=== PATIENT | female | born 1980 | race Caucasian/White ===

== ENCOUNTER 2021-08-28 02:43 | Emergency (ER) | payer MEDICAID ==
[~2021-08-28] VITALS: Ht 167.6 cm; Wt 45.4 kg
[2021-08-28 04:17] VITALS: BP 142/72
== END 2021-08-28 04:24 | disposition left against medical advice (07) ==
LOC: EDBD 02:43 → ER 02:43
DX: F11.23 Opioid dependence with withdrawal (principal); Z53.21 Procedure and treatment not carried out due to patient leaving prior to being seen by health care provider

== ENCOUNTER 2021-08-28 10:28 | Emergency (ER) | payer MEDICAID ==
[~2021-08-28] VITALS: Ht 172.7 cm; Wt 52.2 kg
[2021-08-28] MEDS ORDERED: ONDANSETRON HCL 4 MG/2 ML VIAL IV ONE (11:00)
[2021-08-28] MEDS ORDERED: SODIUM CHLORIDE 0.9% 1,000 ML IV ONE ×2 (11:00→14:30)
[2021-08-28] MEDS ORDERED: LORazepam 2MG/ML-1ML VIAL IV ONE ×2 (11:00→17:30)
[2021-08-28 11:11] LABS: Urine WBC None Seen /hpf (0 - 5)
[2021-08-28 11:31] LABS: Urine Bacteria NONE SEEN /hpf (None Seen); Urine Blood Negative /uL (Negative); Urine Specific Gravity 1.002 (1.001-1.035)
[2021-08-28 11:41] LABS: Amphetamine Screen, Urine POSITIVE (NEGATIVE); Barbiturate Scree,Urine NEGATIVE (NEGATIVE); Benzodiazephine Screen, Urine NEGATIVE (NEGATIVE); Cannabinoid Screen, Urine POSITIVE (NEGATIVE); Cocaine Screen, Urine NEGATIVE (NEGATIVE); Opiate Scree,Urine NEGATIVE (NEGATIVE); Phencyclidine Screen, Urine NEGATIVE (NEGATIVE)
[2021-08-28 12:36] LABS: Basophils # (auto) 0 10 ^3/uL (0-0.2); Basophils % (auto) 0.2 % (0.0-2.0); Eosinophils # (auto) 0 10 ^3/uL (0-0.8); Eosinophils % (auto) 0.1 % (0.0-7.0); Hematocrit 51.5 % (36.0-46.0); Hemoglobin 17.3 g/dL (12.2-16.2); Lymphocytes # (auto) 1.6 10 ^3/uL (0.4-5.4); Lymphocytes % (auto) 17.4 % (10.0-50.0); Mean Corpuscular Hgb Conc. 33.5 g/dL (32.0-36.0); Mean Corpuscular Volume 92.6 fL (80.0-100.0); Monocytes # (auto) 0.5 10 ^3/uL (0-1.3); Monocytes % (auto) 5.8 % (0.0-12.0); Neutrophils # (auto) 7.1 10 ^3/uL (1.6-8.6); Neutrophils % (auto) 76.5 % (37.0-80.0); Red Blood Cells 5.57 10^6/uL (4.0-5.20); Red Cell Distribution Width 14.2 % (11.8-14.3); White Blood Cell 9.3 10^3/uL (4.4-10.8)
[2021-08-28 12:58] LABS: Albumin 3.9 g/dL (3.4-5.0); Calcium 8.9 mg/dL (8.5-10.1); Potassium 3.3 mmol/L (3.5-5.1)
[2021-08-28 13:01] LABS: BUN/Creatinine Ratio 14.7; Bilirubin, Total 1.2 mg/dL (0.2-1.0)
[2021-08-28] MEDS ORDERED: diphenhdrAMINE HCL 50 MG/1 ML VL IV ONE (22:15)
[2021-08-29] MEDS: LORazepam 2MG/ML-1ML VIAL IV PRN ×4 (02:52→11:25)
[2021-08-29 08:15] LABS: Alcohol, Urine < 3.0 mg/dL (0-10); Amphetamine Screen, Urine POSITIVE (NEGATIVE); Barbiturate Scree,Urine NEGATIVE (NEGATIVE); Benzodiazephine Screen, Urine NEGATIVE (NEGATIVE); Cannabinoid Screen, Urine POSITIVE (NEGATIVE); Cocaine Screen, Urine NEGATIVE (NEGATIVE); Phencyclidine Screen, Urine NEGATIVE (NEGATIVE)
[2021-08-29 08:23] LABS: Opiate Scree,Urine POSITIVE (NEGATIVE)
[2021-08-29] MEDS ORDERED: SODIUM CHLORIDE 0.9% 1,000 ML IVB ONE (08:45)
[2021-08-29] MEDS: FOLIC ACID 1 MG, MULTIPLE VITAMIN 10 ML, MAGNESIUM SULF SDV 50% 8 MEQ, THIAMINE INJ 100... INJ SCH ×5 (09:38)
[2021-08-29] MEDS ORDERED: LORazepam 2MG/ML-1ML VIAL IV ONE (11:30)
[2021-08-29 20:00] VITALS: BP 119/92
[2021-08-30] MEDS ORDERED: LOPERAMIDE HCL 2 MG CAP/TAB PO STA (06:56)
[2021-08-30] MEDS ORDERED: LOPERAMIDE HCL 2 MG CAP/TAB PO PRN (07:00)
[2021-08-30] MEDS ORDERED: METHOCARBAMOL 500 MG TAB PO ONE (07:00)
[2021-08-30] MEDS ORDERED: METHOCARBAMOL 500 MG TAB PO PRN (07:00)
[2021-08-30] MEDS: LORazepam 2MG/ML-1ML VIAL IV PRN (07:25)
[2021-08-30] MEDS: LORazepam 0.5 MG TAB PO SCH ×2 (09:41→17:10)
[2021-08-30] MEDS ORDERED: NICOTINE 14 MG/24HR TOPICAL PATCH TD SCH (10:00)
[2021-08-30] MEDS ORDERED: cloNIDine HCL 0.1 MG TAB PO SCH (10:00)
[2021-08-30] MEDS: FOLIC ACID 1 MG, MULTIPLE VITAMIN 10 ML, MAGNESIUM SULF SDV 50% 8 MEQ, THIAMINE INJ 100... INJ SCH ×10 (16:43→17:17)
[2021-08-30] MEDS ORDERED: LORazepam 0.5 MG TAB PO PRN (17:00)
[2021-08-30] MEDS ORDERED: MIRTAZAPINE 30 MG TAB PO SCH (22:00)
== END 2021-08-30 19:47 | disposition left against medical advice (07) ==
LOC: ER 10:28 → EDBD 10:28 → ER 08-30 19:47
DX: F15.10 Other stimulant abuse, uncomplicated (principal); R45.851 Suicidal ideations; F10.129 Alcohol abuse with intoxication, unspecified; F12.10 Cannabis abuse, uncomplicated; F11.10 Opioid abuse, uncomplicated; F17.210 Nicotine dependence, cigarettes, uncomplicated; Z88.8 Allergy status to other drugs, medicaments and biological substances; Z20.822 Contact with and (suspected) exposure to COVID-19; Y90.8 Blood alcohol level of 240 mg/100 ml or more
CPT/HCPCS: 36415; 80053; 80307; 80320; 81001; 83735; 85025; 87426; 96361; 96374; 96375; 96376; 99284; J1200; J2060; J2405; J7030